=== PATIENT | male | born 1980 | race Caucasian/White ===

== ENCOUNTER → 2017-08-27 08:01 | Outpatient (CLI) | payer MEDICARE | END | disposition home or self-care (01) | LOC: D.CT 08:00 | DX: R31.9 Hematuria, unspecified (principal) ==

== ENCOUNTER → 2017-09-20 12:31 | Outpatient (CLI) | payer MEDICARE | END | disposition home or self-care (01) | LOC: D.US 12:31 | DX: R94.4 Abnormal results of kidney function studies (principal) ==